=== PATIENT | female | born 1995 | race Caucasian/White ===

== ENCOUNTER 2016-12-01 15:11 | Inpatient (IN) | payer OTHER ==
--- NOTE | ~2016-12-01 | HP ---
Unit #: [id number] #: [id number] Patient: PATTI HUNT [id number] [place] [address] [id number] MR#: [id number] NAME: PATTI HUNT ROOM: [facility] Age: 21 Sex: F Admission Date: 12/01/2016 : 1995 Attending Physician: Eleanor Fitch M.D. Admitting Physician: Eleanor Fitch M.D. Primary Care Physician: Primary Care Physician No HISTORY AND PHYSICAL HISTORY OF PRESENT ILLNESS Patti is a 21 year old admitted to [address] [place] [address] because of her abuse of alcohol. She is detoxing. PAST MEDICAL HISTORY 1. History of alcohol abuse. 2. Asthma. PAST SURGICAL HISTORY Nothing reported. ALLERGIES No known drug allergies. Peanuts (hives). SOCIAL HISTORY She does not smoke. Drinks a bottle of wine on a daily basis and admits to using marijuana on occasion. FAMILY HISTORY Medically noncontributory. REVIEW OF SYSTEMS CONSTITUTIONAL: No fever or chills. HEENT: Denies any sore throat, ear pain or runny nose. CARDIOVASCULAR: Denies chest pain, irregular heart rhythm or palpitations. CHEST: Denies shortness of breath or cough. No hemoptysis. GASTROINTESTINAL: Denies nausea, vomiting, diarrhea or chronic constipation. ENDOCRINE: Denies history of increased thirst or urination. No recent significant weight loss or gain. GENITOURINARY: Denies dysuria, frequency, or hematuria. SKIN: Denies any rashes. HEMATOLOGIC: Denies history of increased bleeding or bruising. MUSCULOSKELETAL: Denies any hot, swollen joints. No generalized muscle pain. NEUROLOGIC: Denies problems with vision or speech. No frequent, severe headaches. No numbness, tingling or weakness in any extremities. Denies loss of bladder or bowel control. CURRENT MEDICATIONS 1. Milk of Magnesia p.r.n. 2. Maalox p.r.n. 3. Tylenol p.r.n. Unit #: [id number] #: [id number] Patient: PATTI HUNT 4. Proventil inhaler p.r.n. PHYSICAL EXAMINATION GENERAL: Alert, well-nourished, in no apparent distress. VITAL SIGNS: Blood pressure 128/84, heart rate 84, respirations 16, temperature 98.6. WEIGHT: 142. HEIGHT: 5 feet 8 inches. SKIN: Warm and dry without rash or lesion. HEENT: Normocephalic. TMs not viewed. Oral and nasal passages clear. Conjunctivae clear. PERRLA. EOMs intact. NECK: Supple without lymphadenopathy or thyromegaly. HEART: Regular rate and rhythm without murmur. LUNGS: Clear. ABDOMEN: Soft, nontender. : Not done. EXTREMITIES: No evidence of cyanosis, clubbing or edema. Moves all without focal deficit. NEUROLOGICAL: Grossly within normal limits. Cranial Nerves: II: Visual bennett are intact. III, IV AND : Extraocular movements are intact. Pupils are equal, round and reactive to light. V: Facial sensation is grossly normal. VII: Facial movements and expression are normal. VIII: Auditory acuity grossly intact. IX, X: Uvula is midline. Phonation is normal. XI: Patient shrugs shoulders and turns head normally. XII: Tongue protrudes in the midline. Sensory and Motor Function: Sensory and motor sensation is grossly normal. Motor: moves all extremities well. Coordination: Gait is normal. Deep Tendon Reflexes: Intact. IMPRESSION Psychiatric admission. RECOMMENDATIONS PSYCHIATRIC: Per psychiatrist. MEDICAL: See no contraindications to participate in facility's activities. MEDICAL PROGNOSIS Good. MEDICAL CONDITION Stable. Dictated by... Kimberly CordovaAMinh. for Dayday Espinoza/dania TD: 12/01/2016 18:49 JOB #: [id number] Unit #: [id number] #: [id number] Patient: PATTI HUNT HISTORY AND PHYSICAL Page 1 of 1 X Lala Prescott HISTORY AND PHYSICAL
--- NOTE | ~2016-12-01 | PA ---
Unit #: [id number] #: [id number] Patient: THERESE HUNT [id number] [facility] [address] [place] [address] [id number] I MR#: [id number] NAME: THERESE HUNT ROOM: P255 Age: 21 Sex: F Admission Date: 12/01/2016 : 1995 Date of Assessment: 12/02/2016 Attending Physician: Eleanor Fitch M.D. Admitting Physician: Eleanor Fitch M.D. Primary Care Physician: Primary Care Physician No PSYCHIATRIC ASSESSMENT DATE OF SERVICE 12/02/2016. IDENTIFYING DATA Ms. Hunt is a 21-year-old single white female, who is a resident of [place], [place], and was self-referred to the hospital. CHIEF COMPLAINT "I've got a lot of concerns going on, I cannot stop drinking." HISTORY OF PRESENT ILLNESS Ms. Hunt is a 21-year-old white female with history of substance abuse and mood disorder, who was self-referred to the hospital stating that she cannot stop drinking and she has a lot of concerns going on, "I'm super foggy headed all the time and I'm showing up to work late and I think I have bipolar. I cannot get anything done and I've dealt with a lot of suicidal thoughts for the past month and I've not acted on it or anything. I'm just worried about myself and I don't know where to get help. 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 SUBSTANCE ABUSE HISTORY The patient reports cannabis abuse, but denies any other substance abuse issues. PAST PSYCHIATRIC HISTORY The patient has had outpatient counseling in the past. Review of the medical records indicate currently she is not active in any treatment program, is not seeing a psychiatrist, and is not taking any psychotropic medications. PAST MEDICAL HISTORY The patient's medical history is insignificant. PERSONAL AND SOCIAL HISTORY A 21-year-old white female, who reports that she is single, unemployed, and has poor social support system. Unit #: [id number] #: [id number] Patient: THERESE HUNT MENTAL STATUS EXAMINATION Young white female, who was casually dressed with fair personal hygiene, appears to be in no acute distress or discomfort. She was awake and alert on interaction with intact orientation to time, place, and person. Her mood was anxious with a congruent affect. She denies any suicidal or homicidal ideations and also denies any auditory or visual hallucinations. Her insight and judgment remain significantly impaired. DIAGNOSTIC IMPRESSION Psychiatric: Major depressive disorder, recurrent, moderate, without psychotic features; generalized anxiety disorder; and alcohol abuse, moderate. Medical: None. Stressors: Moderate psychosocial stressors. TREATMENT PLAN 1. The patient has presented with a history of mood disorder and substance abuse and will need inpatient hospitalization for safety and stabilization. We will start her back on her home medications and we will adjust the medications and monitor response. 2. Supportive therapy was provided to the patient. ESTIMATED LENGTH OF STAY 5 to 7 days. ABILITY TO HELP SELF Limited. WILLINGNESS TO HELP SELF The patient appears to be willing to help self. STRENGTHS 1. Communicative. 2. Cooperative. PROBLEMS 1. Chronic dysphoric symptoms. 2. Poor social support system. DISCHARGE CRITERIA This will be contingent upon the patient's ability to show resolution of her depression and anxiety and her ability to stay safe to herself, particularly after discharge from the hospital. Dictated by... Dayday Humphreys/junie TD: 12/02/2016 18:40 JOB #: [id number] Unit #: [id number] #: [id number] Patient: THERESE HUNT PSYCHIATRIC ASSESSMENT Page 1 of 1 X Eleanor Fitch MD PSYCHIATRIC ASSESSMENT
--- NOTE | ~2016-12-01 | PN ---
Unit #: [id number] #: [id number] Patient: THERESE HUNT [id number] [facility] [address] [place] [address] [id number] MR#: [id number] NAME: THERESE HUNT ROOM: [facility]5 Age: 21 Sex: F Admission Date: 12/01/2016 : 1995 Attending Physician: Eleanor Fitch M.D. Admitting Physician: Eleanor Fitch M.D. Primary Care Physician: Primary Care Physician Shereen ONEAL NOTES DATE December 03, 2016 DISCUSSION Ms. Hunt is a 21-year-old white female, who was seen today and chart was reviewed and the case was discussed with the staff. The patient has been anxious, withdrawn and seclusive but has been cooperative with the treatment recommendations and has been taking the medications and tolerating them fairly well. MENTAL STATUS EXAMINATION Young white female, who was casually dressed with fair personal hygiene and appears to be in no acute distress or discomfort. She was awake and alert with intact orientation. The patient denies any suicidal or homicidal ideations. Her insight and judgment remain slightly impaired. TREATMENT PLAN We will continue her on her current medications and treatment protocol, and will monitor her response to the medications, and make further adjustments as needed. Dictated by... Dayday Humphreys/josé TD: 12/04/2016 13:18 JOB #: [id number] [facility] PROGRESS NOTES Page 1 of 1 X Eleanor Fitch MD X PROGRESS NOTE
--- NOTE | ~2016-12-01 | DS ---
Unit #: [id number] #: [id number] Patient: THERESE HUNT [id number] [place] [address] [id number] I MR#: [id number] NAME: THERESE HUNT ROOM: [facility] Age: 21 Sex: F Admission Date: 12/01/2016 : 1995 Discharge Date: 12/04/2016 Attending Physician: Eleanor Fitch M.D. DISCHARGE SUMMARY IDENTIFYING DATA Ms. Hunt is a 21-year-old white female with history of mood disorder, who was self-referred to the hospital. DISCHARGE DIAGNOSES Psychiatric: Major depressive disorder, recurrent, moderate, without psychotic features; generalized anxiety disorder, alcohol abuse, moderate. Medical: None. Stressors: Moderate psychosocial stressors. HISTORY OF PRESENT ILLNESS Ms. Hunt is a 21-year-old white female with history of substance abuse and mood disorder, who was self-referred to the hospital stating that she cannot stop drinking and she has a lot of concerns going on, "I'm super foggy headed all the time and I'm showing up to work late and I think I have bipolar. I cannot get anything done and I've dealt with a lot of suicidal thoughts for the past month and I've not acted on it or anything. I'm just worried about myself and I don't know where to get help. 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 PAST PSYCHIATRIC HISTORY The patient has had outpatient counseling in the past. Review of the medical records indicate currently she is not active in any treatment program, is not seeing a psychiatrist, and is not taking any psychotropic medications. PAST MEDICAL HISTORY The patient's medical history is insignificant. HOSPITAL COURSE The patient was admitted to the adult psychiatric unit at [facility] and was oriented to the hospital environment. Routine p.r.n. medications were initiated, and she was started back on her home medications and Celexa 20 mg a day as an antidepressant was initiated and she was closely monitored. She was taking the medications regularly and was tolerating them fairly well and was able to show a decent therapeutic response with improvement in depression and anxiety and was denying any Unit #: [id number] #: [id number] Patient: THERESE HUNT thoughts of wanting to hurt herself and as such, it was decided that she will be discharged home. We will continue with treatment on an outpatient basis. DISCHARGE MEDICATION Celexa 20 mg a day for depression. DISCHARGE CONDITION Stable. PROGNOSIS Fair. Dictated by... Eleanor Fitch M.D. CHELSEA/junie TD: 12/04/2016 15:23 JOB #: [id number] DISCHARGE SUMMARY Page 1 of 1 X Eleanor Fitch MD X DISCHARGE SUMMARY
[2016-12-02 12:10] LABS: BASOPHIL# 0.1 X10e3 (0-0.3); BASOPHIL% 0.8 % (0-2.5); EOSINOPHIL# 0.6 X10e3 (0-0.7); EOSINOPHIL% 6.9 % (0.0-7.0); HEMATOCRIT 43.9 % (35.0-45.0); HEMOGLOBIN 14.6 gm/dL (12.0-16.0); LYMPHOCYTE# 3.4 X10e3 (1.0-3.5); MEAN CELL VOLUME 93.9 FL (83-96); MEAN CORPUSCULAR HEMOGLOBIN 31.2 PG (28-34); MEAN CORPUSCULAR HGB CONC 33.2 g/dL (30-36); MEAN PLATELET VOLUME 6.9 FL (6.5-11.5); MONOCYTE# 0.4 X10e3 (0-1.0); MONOCYTE% 4.9 % (3.0-12.0); NEUTROPHIL# 3.7 X10e3 (1.5-7.1); NEUTROPHIL% 45.4 % (40-75); PLATELET COUNT 317 X10e3 (140-420); RED BLOOD COUNT 4.68 X10e (3.90-5.30); RED CELL DISTRIBUTION WIDTH 12.5 % (11.0-15.5); WHITE BLOOD COUNT 8.1 X10e3 (4.0-10.5)
[2016-12-02 12:12] LABS: DIFF IND NO
[2016-12-02 13:32] LABS: ALBUMIN SERUM 3.9 g/dL (3.5-5.0); BILIRUBIN,TOTAL 0.7 mg/dL (0.2-2.0); BUN/CREATININE RATIO 18.33; CALCIUM SERUM 9.1 mg/dL (8.4-10.2); CREATININE SERUM 0.6 mg/dL (0.6-1.4); GLOM FILT RATE Estimated 128.5 mL/min (>60); POTASSIUM 4.1 mmol/L (3.5-5.1); PROTEIN TOTAL SERUM 6.4 g/dL (6.0-8.3)
[2016-12-04 09:43] LABS: URINE APPEARANCE CLEAR; URINE BILIRUBIN NEG (NEG); URINE BLOOD 2+ (NEG); URINE COLOR YELLOW; URINE GLUCOSE NEG (NEG); URINE KETONE NEG (NEG); URINE LEUKOCYTE ESTERASE TRACE (NEG); URINE NITRATE NEG (NEG); URINE PROTEIN NEG (NEG); URINE SPECIFIC GRAVITY 1.006 (1.003-1.035); URINE UROBILINOGEN 0.2 MG/DL (NEG)
[2016-12-04 09:47] LABS: URBCS1 AUWI 0-2 /[HPF] (0-2); URINE BACTERIA AUWI NEG (NEGATIVE); URINE SQUAMOUS EPITHELIAL CELL OCC /[HPF]; UWBCS1 AUWI 0-2 (0-5)
[2016-12-04 10:15] LABS: AMPHETAMINE NEG (NEG); BARBITURATES NEG (NEG); BENZODIAZEPINES NEG (NEG); COCAINE NEG (NEG); MARIJUANA NEG (NEG); OPIATES NEG (NEG); TRICYCLIC ANTIDEPRESSANTS NEG (NEG); U METHADONE NEG (NEG)
== END 2016-12-04 09:45 | disposition home or self-care (01) | DRG 885 ==
LOC: P2L 15:11 → POF 18:12 → P2L 18:14
PROVIDERS: Psychiatry & Neurology Psychiatry
PROC: HZ2ZZZZ Detoxification Services for Substance Abuse Treatment (ICD-10-PCS; principal; 2016-12-02)
DX: F33.1 Major depressive disorder, recurrent, moderate (principal); F41.1 Generalized anxiety disorder; F10.10 Alcohol abuse, uncomplicated
CPT/HCPCS: 80053; 80307; 81003; 84703; 85025; 86592; 87806